=== PATIENT | female | born 1970 | race Asian ===

== ENCOUNTER 2023-02-05 20:57 | Emergency (ER) | payer MEDICAID ==
[~2023-02-05] VITALS: Ht 162.6 cm; Wt 50.3 kg
[2023-02-05 21:02] VITALS: O2SAT 100
== END 2023-02-06 04:33 | disposition left against medical advice (07) ==
LOC: ER 21:05
DX: R51.9 Headache, unspecified (principal); F22 Delusional disorders; F41.9 Anxiety disorder, unspecified
CPT/HCPCS: A4663